=== PATIENT | female | born 1995 | race Caucasian/White ===

== ENCOUNTER 2021-01-27 19:45 | Emergency (ER) | payer OTHER ==
[2021-01-27 21:50] LABS: INFLUENZA A NAA NEGATIVE (NEGATIVE)
[2021-01-27 21:52] LABS: CORONAVIRUS 2019 SARS-COV-2 POSITIVE (NEGATIVE)
[2021-01-27 22:33] LABS: BASOPHIL 0.4 % (0-2); EOSINOPHIL 0.2 % (0-5); HCT 42.2 % (37.0-47.0); HGB 13.7 g/dl (12.5-16.0); LYMPHOCYTE 27.3 % (15-48); MCHC 32.5 g/dL (32.0-36.0); MCV 89.2 fL (78.0-100.0); MONOCYTE 15.2 % (0-12); MPV 10.4 fL (6.0-9.5); NEUTROPHIL 56.7 % (41-80); NRBC 0; PLT 196 K/uL (150-400); RBC 4.73 M/uL (4.20-5.40); RDW 13.2 % (11.5-14.0); WBC 4.7 K/uL (4.0-10.5)
[2021-01-27 22:50] LABS: ALBUMIN 4.1 g/dL (3.4-5.0); BILIRUBIN - TOTAL 0.2 mg/dL (0.2-1.0); BUN/CREAT RATIO (CALC) 13.1 RATIO; CREATININE 0.84 mg/dL (0.51-0.95); GLOBULIN (CALCULATION) 4.1 g/dL; POTASSIUM 3.9 mmol/L (3.5-5.1); TOTAL PROTEIN 8.2 g/dL (6.4-8.2)
== END 2021-01-27 23:20 | disposition home or self-care (01) ==
LOC: FER 19:45
PROVIDERS: Emergency Medicine
DX: U07.1 COVID-19 (principal); Z88.2 Allergy status to sulfonamides
CPT/HCPCS: 36415; 80053; 85025; 99283; U0002

== ENCOUNTER 2021-03-24 19:16 | Emergency (ER) | payer OTHER ==
[2021-03-24 20:59] LABS: BASOPHIL 0.3 % (0-2); EOSINOPHIL 2.1 % (0-5); HCT 38.3 % (37.0-47.0); HGB 12.7 g/dl (12.5-16.0); LYMPHOCYTE 36.2 % (15-48); MCH 28.7 pg (25.0-31.0); MCHC 33.2 g/dL (32.0-36.0); MCV 86.7 fL (78.0-100.0); MONOCYTE 6.7 % (0-12); MPV 10.2 fL (6.0-9.5); NEUTROPHIL 54.4 % (41-80); NRBC 0; PLT 230 K/uL (150-400); RBC 4.42 M/uL (4.20-5.40); RDW 13.2 % (11.5-14.0); WBC 6.3 K/uL (4.0-10.5)
[2021-03-24 21:15] LABS: BUN/CREAT RATIO (CALC) 20.5 RATIO; CREATININE 0.73 mg/dL (0.51-0.95); POTASSIUM 3.8 mmol/L (3.5-5.1)
[2021-03-24 21:16] LABS: BILIRUBIN NEGATIVE (NEGATIVE); BLOOD 2+ Ery/uL (NEGATIVE); CLARITY CLEAR (CLEAR); COLOR YELLOW (YELLOW); GLUCOSE (U) NORMAL (NORMAL); LEUKOCYTES NEGATIVE Leu/uL (NEGATIVE); NITRITE NEGATIVE (NEGATIVE); PROTEIN NEGATIVE (NEGATIVE); SPECIFIC GRAVITY 1.025 (1.001-1.030); pH 6.5 (5.0-9.0)
[2021-03-24 21:20] LABS: AMPHETAMINES NEGATIVE (NEGATIVE); BARBITURATES NEGATIVE (NEGATIVE); ECSTASY (MDMA) NEGATIVE (NEGATIVE); MARIJUANA (THC) POSITIVE (NEGATIVE); METHADONE NEGATIVE (NEGATIVE); OPIATES NEGATIVE (NEGATIVE); OXYCODONE NEGATIVE (NEGATIVE)
[2021-03-24 21:22] LABS: URINARY RBC RARE
[2021-03-24 21:23] LABS: BACTERIA TRACE; MUCOUS MODERATE
[2021-03-24] MEDS ORDERED: PREDNISONE 20MG20 MG PO (22:10)
[2021-03-24] MEDS ORDERED: VENTOLIN HFA IN18 GM INH (22:10)
== END 2021-03-24 22:30 | disposition home or self-care (01) ==
LOC: FER 19:16
PROVIDERS: Nurse Practitioner Family
DX: R07.89 Other chest pain (principal); R05 Cough; R06.02 Shortness of breath; B97.4 Respiratory syncytial virus as the cause of diseases classified elsewhere; Z88.2 Allergy status to sulfonamides; Z86.16 Personal history of COVID-19
CPT/HCPCS: 36415; 80048; 80305; 81001; 84702; 85025; 93005; J1100

== ENCOUNTER 2021-06-17 18:07 | Emergency (ER) | payer OTHER ==
[~2021-06-17 18:07] MED LIST: PREDNISONE 20MG20 MG PO; VENTOLIN HFA IN18 GM INH
[2021-06-17 18:51] LABS: BASOPHIL 0.4 % (0-2); EOSINOPHIL 0.2 % (0-5); HGB 14.3 g/dl (12.5-16.0); LYMPHOCYTE 24.1 % (15-48); MCH 28.7 pg (25.0-31.0); MCHC 33.3 g/dL (32.0-36.0); MCV 86.3 fL (78.0-100.0); MONOCYTE 9.8 % (0-12); MPV 10.5 fL (6.0-9.5); NEUTROPHIL 65.3 % (41-80); NRBC 0; PLT 180 K/uL (150-400); RBC 4.98 M/uL (4.20-5.40); RDW 12.7 % (11.5-14.0); WBC 5.2 K/uL (4.0-10.5)
[2021-06-17 18:52] LABS: BILIRUBIN 1+ mg/dL (NEGATIVE); BLOOD 3+ Ery/uL (NEGATIVE); CLARITY CLEAR (CLEAR); COLOR YELLOW (YELLOW); GLUCOSE (U) NORMAL (NORMAL); LEUKOCYTES NEGATIVE Leu/uL (NEGATIVE); NITRITE NEGATIVE (NEGATIVE); PROTEIN 2+ mg/dL (NEGATIVE); SPECIFIC GRAVITY >=1.030 (1.001-1.030); UROBILINOGEN 0.2 mg/dL (0.2-1.0)
[2021-06-17 18:58] LABS: AMORPHOUS URATES CRYSTALS TRACE; BACTERIA 2+; MUCOUS MODERATE; SQUAMOUS EPITHELIAL CELLS >50; YEAST PRESENT
[2021-06-17 19:23] LABS: CORONAVIRUS 2019 SARS-COV-2 NEGATIVE (NEGATIVE); INFLUENZA A NAA NEGATIVE (NEGATIVE)
[2021-06-17 19:44] LABS: ALBUMIN 4.3 g/dL (3.4-5.0); BILIRUBIN - TOTAL 0.4 mg/dL (0.2-1.0); BUN/CREAT RATIO (CALC) 23.8 RATIO; CREATININE 0.8 mg/dL (0.51-0.95); GLOBULIN (CALCULATION) 4.2 g/dL; TOTAL PROTEIN 8.5 g/dL (6.4-8.2)
[2021-06-17 20:35] LABS: C-REACTIVE PROTEIN 1.6 mg/dL (<=0.90)
[2021-06-17] MEDS ORDERED: PREDNISONE 20MG20 MG PO ×2 (22:43→22:46)
[2021-06-17] MEDS ORDERED: HYCODAN5 ML PO (22:43)
[2021-06-17] MEDS ORDERED: VIBRAMYCIN100 MG PO (22:43)
[2021-06-17] MEDS ORDERED: PROAIR HFA8.5 GM INH ×2 (22:43→22:46)
[2021-06-17] MEDS ORDERED: ONDANSETRON ODT4 MG PO (22:46)
== END 2021-06-17 23:14 | disposition home or self-care (01) ==
LOC: FER 18:07
PROVIDERS: Emergency Medicine
DX: J18.9 Pneumonia, unspecified organism (principal); Z88.2 Allergy status to sulfonamides; Z20.822 Contact with and (suspected) exposure to COVID-19
CPT/HCPCS: 36415; 80053; 81001; 82150; 82728; 83615; 83690; 84145; 85025; 86140; 94640; 94664; J0696; J1885; J2930; J7030; Q9967; U0002

== ENCOUNTER 2021-09-04 01:42 | Emergency (ER) | payer OTHER ==
[~2021-09-04 01:42] MED LIST changes: +HYCODAN5 ML PO; +ONDANSETRON ODT4 MG PO; +PROAIR HFA8.5 GM INH; +VIBRAMYCIN100 MG PO
[2021-09-04 02:33] LABS: BASOPHIL 0.2 % (0-2); EOSINOPHIL 0.8 % (0-5); HCT 38.4 % (37.0-47.0); HGB 13.2 g/dl (12.5-16.0); LYMPHOCYTE 25.8 % (15-48); MCH 30.3 pg (25.0-31.0); MCHC 34.4 g/dL (32.0-36.0); MCV 88.1 fL (78.0-100.0); MONOCYTE 7.8 % (0-12); MPV 10.9 fL (6.0-9.5); NEUTROPHIL 65.2 % (41-80); NRBC 0; PLT 209 K/uL (150-400); RBC 4.36 M/uL (4.20-5.40); RDW 13.1 % (11.5-14.0); WBC 8.2 K/uL (4.0-10.5)
[2021-09-04 02:33] LABS: BILIRUBIN NEGATIVE (NEGATIVE); BLOOD 3+ Ery/uL (NEGATIVE); CLARITY CLEAR (CLEAR); COLOR YELLOW (YELLOW); GLUCOSE (U) NORMAL (NORMAL); LEUKOCYTES NEGATIVE Leu/uL (NEGATIVE); NITRITE NEGATIVE (NEGATIVE); PROTEIN NEGATIVE (NEGATIVE); SPECIFIC GRAVITY >=1.030 (1.001-1.030); UROBILINOGEN 0.2 mg/dL (0.2-1.0)
[2021-09-04 02:42] LABS: URINARY WBC RARE
[2021-09-04 02:43] LABS: BACTERIA 2+
[2021-09-04 03:10] LABS: ALBUMIN 3.9 g/dL (3.4-5.0); BILIRUBIN - TOTAL 0.3 mg/dL (0.2-1.0); BUN/CREAT RATIO (CALC) 12.5 RATIO; C-REACTIVE PROTEIN 0.2 mg/dL (<=0.90); CREATININE 0.64 mg/dL (0.51-0.95); GLOBULIN (CALCULATION) 3.5 g/dL; POTASSIUM 3.6 mmol/L (3.5-5.1); TOTAL PROTEIN 7.4 g/dL (6.4-8.2)
[2021-09-04] MEDS ORDERED: KEFLEX250 MG PO (03:29)
[2021-09-04] MEDS ORDERED: METRONIDAZOLE250 MG PO (03:29)
[2021-09-05 22:10] LABS: CHLAMYDIA TRACHOMATIS, NAA Negative (Negative); NEISSERIA GONORRHOEAE, NAA Negative (Negative)
== END 2021-09-04 08:40 | disposition home or self-care (01) ==
LOC: FER 01:42
PROVIDERS: Emergency Medicine
DX: O23.591 Infection of other part of genital tract in pregnancy, first trimester (principal); O99.891 Other specified diseases and conditions complicating pregnancy; B96.89 Other specified bacterial agents as the cause of diseases classified elsewhere; R82.71 Bacteriuria; Z3A.08 8 weeks gestation of pregnancy; Z88.1 Allergy status to other antibiotic agents
CPT/HCPCS: 36415; 74181; 76801; 80053; 81001; 84145; 84702; 85025; 86140; 87210; 87491; 87591